=== PATIENT | female | born 1990 | race Caucasian/White ===

== ENCOUNTER 2024-01-19 13:50 | Emergency (ER) | payer BC, SELFPAY ==
[2024-01-19 13:51] VITALS: BP 156/102
[2024-01-19 14:55] VITALS: BMI 27.8
[2024-01-19 14:58] VITALS: BP 130/88
[2024-01-19 14:59] VITALS: BP 130/88
[2024-01-19 15:13] LABS: HCG, Urine Qualitative Screen Negative
--- NOTE | 2024-01-19 15:46 | ED.GENMED ---
History of Present Illness
General
Chief Complaint: Headache
Source: patient
Exam Limitations: none
Time Seen by Provider: 01/19/24 14:39
Travel History
Have you had any contact with someone who has COVID-19?: No
Do you have any symptoms of coronavirus? Fever > 100 degrees, chills, cough, shortness of breath, sore throat, loss of taste or smell, muscle aches, or headache?: No
History of Present Illness
History of Present Illness:
33 yo female w h/o Epilepsy with occasional headaches, presents stating she had a headache for the past 3 days. Its mainly on the right side of her head from her neck up and around to the forehead and around her right eye. She feels nauseous. She
vomited 3 times yesterday but none today. She states pain is 10/10. She took Advil once yesterday with no relief she denies change in vision or photophobia. She states this is different than any headache she has ever had.
She went to her PCP earlier today and saw the nurse practitioner at Dr. Meron Lopez's office and was given Nurtec to see if it helped. This was done 2 hours prior to coming here. She has had absolutely no relief.
She denies fever or chills, no recent trauma. Denies neck pain. Denies numbness or weakness in her extremities.
Medications:
Keppra, Lamictal, Lexapro vits (for the folic acid)
Past History
Past History
ED Past Medical History: Seizures
ED Past Surgical History: Orthopedic
Social History
Tobacco: Non-smoker
Alcohol: Occasional
Personal:
Living: with family
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
Review of Systems
Review of Systems
Allergies reviewed?: Yes
All Other Systems: ROS reviewed and negative except as documented in HPI and ROS
Constitutional: Denies fever
Respiratory: Denies trouble breathing
Cardiac: Denies chest pain
ABD/GI: Reports nausea; Denies abdominal pain
: Reports no symptoms
Musculoskeletal: Reports no symptoms
Skin: Reports no symptoms
Neurological: Reports headache; Denies dizzy, weakness or numbness
Phy Exam
Physical Exam
Physical Exam:
GENERAL: No acute distress. A&Ox3.
CONSTITUTIONAL: Afebrile.
EYES: PERRL, conjunctivae normal
Neck: Supple
ENMT: moist mucus membranes, Pharynx nl
RESPIRATORY: Regular respirations, nonlabored, lungs clear.
CARDIOVASCULAR: Regular rate and rhythm, no murmurs, no rubs.
GI: Soft, nontender, normal BS
MUSCULOSKELETAL: Moves with ease. Well perfused.
SKIN: Warm, dry, pink
PSYCH: Normal mood and affect. Well kept, interactive and appropriate
NEUROLOGIC: Awake, alert and oriented. No focal neurological deficits
Course
Orders/Labs/Results
Orders:
Orders
01/19/24 13:54
CT Head W/o Iv Contrast Urgent
Comment:
Reason For Exam: headache
01/19/24 14:44
Test Result ONCE
01/19/24 14:56
HCG, Urine Qualitative Screen Urgent
Date Specimen was Collected: 01/19/24
Time Specimen was Collected: 14:54
01/19/24 15:56
IV Insert/Care/Rem.- Treatment PRN
0.9% Sodium Chloride 1000 ml [Nss] 1,000 ml IV BOLUS
Diphenhydramine [Benadryl] 50 mg IM NOW STA
01/19/24 15:57
Ketorolac [Toradol] 15 mg IV NOW STA
01/19/24 16:09
Ondansetron Injectable [Zofran] 4 mg .ROUTE .STK-MED ONE
01/19/24 16:22
Ondansetron Injectable [Zofran] 4 mg IV NOW STA
Vital Signs
Initial and Last Documented VS:
Initial Vital Signs
Temp Pulse Resp BP Pulse Ox
99.0 F 67 20 156/102 98
01/19/24 13:51 01/19/24 13:51 01/19/24 13:51 01/19/24 13:51 01/19/24 13:51
Last Documented Vital Signs
Temp Pulse Resp BP Pulse Ox
99.0 F 60 18 114/78 97
01/19/24 13:51 01/19/24 18:24 01/19/24 18:24 01/19/24 18:00 01/19/24 18:00
MDM/Problems Addressed
Differential Diagnosis Includes:
migraine,
MDM/Problems Addressed:
33 yo female w h/o Epilepsy with occasional headaches, presents stating she had a headache for the past 3 days. Its mainly on the right side of her head from her neck up and around to the forehead and around her right eye. She feels nauseous. She
vomited 3 times yesterday but none today. She states pain is 10/10. She took Advil once yesterday with no relief she denies change in vision or photophobia. She states this is different than any headache she has ever had.
She went to her PCP earlier today and saw the nurse practitioner at Dr. Meron Lopez's office and was given Nurtec to see if it helped. This was done 2 hours prior to coming here. She has had absolutely no relief.
She denies fever or chills, no recent trauma. Denies neck pain. Denies numbness or weakness in her extremities.
Afebrile
6:00 PM
After IV fluids, Benadryl, Zofran and Toradol patient states she is feeling much and is comfortable going home. Headache is now 5/10. She states she has has Excedrin and ibuprofen she can take at home
Pt observed ambulating out with normal gait at discharge
*Critical Care Note
Total Time (30-74mins, 75-104mins- exclusive of procedures): Not Applicable
ED Attending Note
-
Portions of this chart may have been created with voice recognition software.� Occasional wrong word or��sound alike� substitutions may have occurred due to the inherent limitations of voice recognition software.
Discharge Plan
Departure
Patient Disposition: Home (Routine Discharge)
Date of Disposition: 01/19/24
Time of Disposition: 18:10
Patient with high blood pressure during this ER visit?: No
Condition: Good
Discharge Problem:
Headache
Instructions: Headache, Adult (DC)
Prescriptions:
No Action
hydrocodone-acetaminophen [Vicodin] 1 EACH tablet
1 ea PO Q4HPRN Qty: 6 0RF
Referrals:
Meron Lopez, DO [Family Provider] - As needed
Activity Restrictions/Additional Instructions:
As we discussed, your head CT shows nothing worrisome.
Use your Excedrin or ibuprofen as needed for headache
Sure to drink plenty of fluids to stay hydrated
Interventions
Interventions:
*Risk Screen - Suicide Last Done: 01/19/24 13:51
*General Assessment Last Done: 01/19/24 13:51
*Neglect/Abuse Screening Last Done: 01/19/24 13:51
ED- Fall Risk Assessment Last Done: 01/19/24 14:59
*ED COVID-19 Vaccine History Last Done: 01/19/24 14:55
*Nursing Disposition Last Done: 01/19/24 18:25
ED- Neurological Assessment Last Done: 01/19/24 14:58
Discharge Date and Time
Discharge Date/Time: 01/19/24 18:25
Print Language: FRISIAN
[2024-01-19 16:00] VITALS: BP 136/85
[2024-01-19] MEDS: TORADOL 15 MG IV (16:12)
[2024-01-19] MEDS: NSS 1000 IV (16:13)
[2024-01-19] MEDS: BENADRYL 50 MG IM (16:13)
[2024-01-19] MEDS: ZOFRAN 4 MG IV (16:36)
[2024-01-19 17:00] VITALS: BP 111/81
[2024-01-19 18:00] VITALS: BP 114/78
== END 2024-01-19 18:25 | disposition home or self-care (01) ==
LOC: EMR 13:50
PROVIDERS: Registered Nurse; EMERGENCY PHYSICIAN Emergency Medicine; FAMILY PHYSICIAN Family Medicine
DX: R51.9 Headache, unspecified (principal); R11.2 Nausea with vomiting, unspecified; R56.9 Unspecified convulsions; Z91.018 Allergy to other foods
CPT/HCPCS: 99284; 96374; 96375; 96361; 96372; 70450; 81025

== ENCOUNTER 2024-01-21 05:20 | Emergency (ER) | payer BC, SELFPAY ==
[2024-01-21 05:21] VITALS: BP 152/95
[2024-01-21] MEDS: COMPAZINE 10 MG IV (06:13)
--- NOTE | 2024-01-21 06:13 | ED.GENMED ---
History of Present Illness
General
Chief Complaint: Headache
Source: patient and spouse
Time Seen by Provider: 01/21/24 05:32
Travel History
Have you had any contact with someone who has COVID-19?: No
Do you have any symptoms of coronavirus? Fever > 100 degrees, chills, cough, shortness of breath, sore throat, loss of taste or smell, muscle aches, or headache?: No
History of Present Illness
History of Present Illness:
33-year-old female presents to the emergency room complaining of a headache. Patient has a history of epilepsy but has not typically had headaches. Headache began 5 days ago. Patient was seen here 2 days ago and had a workup which included a
negative CAT scan. Patient was given Nurtec by her primary care doctor which did not help. She denies any focal weakness numbness or tingling. No vomiting today.
Past History
Past History
ED Past Medical History: Seizures
ED Past Surgical History: Orthopedic
Social History
Tobacco: Non-smoker
Alcohol: Occasional
Personal:
Living: with family
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
Phy Exam
Physical Exam
Physical Exam:
General: Awake, Alert, Oriented X3. No acute distress.
Vitals: Moderate hypertension
Head: Atraumatic
Eyes: Pupils equal, EOMI
Throat: Airway intact, no exudates
Neck: Trachea midline
Lungs: Clear and equal b/l
Heart: Regular rate, no murmurs
Abd: Soft, Nontender, No pulsatile mass
Neuro: Cranial nerves intact, muscle strength equal bilaterally, cerebellar exam normal
Skin: Warm, dry, no rash
Extremities: pulses equal b/l, no edema
Course
Orders/Labs/Results
Orders:
Orders
01/21/24 06:08
Diphenhydramine [Benadryl] 25 mg IV NOW STA
Prochlorperazine [Compazine] 10 mg IV NOW STA
01/21/24 06:09
0.9% Sodium Chloride 500 ml [Nss] 500 ml IV BOLUS
01/21/24 07:55
CT Head & Neck Angio W/wo IV Urgent
Comment:
Reason For Exam: severe headache, no hx of migraines
01/21/24 07:56
Test Result ONCE
01/21/24 07:58
Comprehensive Metabolic Panel Urgent
HCG, Serum Qualitative Screen Urgent
01/21/24 08:16
Acetaminophen 1000MG/100Ml [Ofirmev] 1,000 mg in 100 ml IV ONCE
Acetaminophen IV Indication:: ED Narcotic Naive Pt-ONCE
01/21/24 10:35
HYDROmorphone [Dilaudid] 0.25 mg IV NOW STA
Abnormal Lab Results
01/21/24
07:58
Chloride 108 H mmol/L
(98-107)
Carbon Dioxide 21 L mmol/L
(22-30)
01/21/24 07:58
Vital Signs
Initial and Last Documented VS:
Initial Vital Signs
Temp Pulse Resp BP Pulse Ox
98.0 F 74 18 152/95 97
01/21/24 05:21 01/21/24 05:21 01/21/24 05:21 01/21/24 05:21 01/21/24 05:21
Last Documented Vital Signs
Temp Pulse Resp BP Pulse Ox
98.0 F 68 18 118/89 94
01/21/24 05:21 01/21/24 10:33 01/21/24 10:33 01/21/24 10:33 01/21/24 11:00
MDM/Problems Addressed
Differential Diagnosis Includes:
Migraine headache, tension headache, subarachnoid hemorrhage
MDM/Problems Addressed:
CTA was performed given the patient's headache is refractory to treatment and she does not have a history of migraine headaches. 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 Discussed with neurosurgery here who refers
the patient out for endovascular evaluation. Discussed with Dr. Ford who is on-call for neurosurgery at [place]. Patient was accepted in transfer. Patient will go to the neuro ICU.
*Radiology
Radiology exam reviewed: radiology read reviewed
*Critical Care Note
Total Time (30-74mins, 75-104mins- exclusive of procedures): 35 min
comment:
Critical care statement: A total of 35 minutes of critical care time was provided for this patient. This includes management of unstable vital signs, evaluation of the patient at bedside, reviewing the patient's pertinent medical records, discussion
with consultants, review of old EKGs and review of pertinent medical records. This time with separate from time utilized to perform the aforementioned documented procedures
ED Attending Note
-
Portions of this chart may have been created with voice recognition software.� Occasional wrong word or��sound alike� substitutions may have occurred due to the inherent limitations of voice recognition software.
Discharge Plan
Departure
Patient Disposition: Acute Care Hospital
Date of Disposition: 01/21/24
Time of Disposition: 10:35
Condition: Fair
Discharge Problem:
Dissection, vertebral artery
Prescriptions:
No Action
hydrocodone-acetaminophen [Vicodin] 1 EACH tablet
1 ea PO Q4HPRN Qty: 6 0RF
Referrals:
Meron Lopez DO [Family Provider] -
Hospital Transfer
Other hospital: [facility]
I certify that the patient requires transfer: Yes
Discussed case with accepting physician: Dr. Ford
Reason for transfer: specialties available
Interventions
Interventions:
*Risk Screen - Suicide Last Done: 01/21/24 06:37
*General Assessment Last Done: 01/21/24 06:37
*Neglect/Abuse Screening Last Done: 01/21/24 06:37
ED- Fall Risk Assessment Last Done: 01/21/24 06:37
*Nursing Disposition Last Done: 01/21/24 12:41
ED- Neurological Assessment Last Done: 01/21/24 06:37
Discharge Date and Time
Discharge Date/Time: 01/21/24 12:42
Print Language: SAUDI ARABIAN
[2024-01-21] MEDS: BENADRYL 25 MG IV (06:14)
[2024-01-21] MEDS: NSS 500 IV (06:14)
[2024-01-21 08:18] LABS: HCG, Serum Qualitative Screen Negative
[2024-01-21 08:21] LABS: ALT (SGPT) 11 U/L (0-35); AST (SGOT) 19 U/L (14-36); Alkaline Phosphatase 53 U/L (38-126); Blood Urea Nitrogen 7 mg/dl (7-17); Calcium 8.5 mg/dl (8.4-10.2); Carbon Dioxide 21 mmol/L (22-30); Chloride 108 mmol/L (98-107); Glucose 81 mg/dl (70-99); Potassium 4.3 mmol/L (3.5-5.1); Sodium 139 mmol/L (135-145); Total Bilirubin 0.2 mg/dl (0.2-1.3); Total Protein 6.6 g/dl (6.3-8.2); eGFR > 60.00
[2024-01-21] MEDS: OFIRMEV 100 IV (08:22)
[2024-01-21 08:30] VITALS: BP 147/98
[2024-01-21 10:33] VITALS: BP 118/89
[2024-01-21] MEDS: DILAUDID 0.25 MG IV (10:52)
== END 2024-01-21 12:42 | disposition short-term general hospital (02) ==
LOC: EMR 05:20
PROVIDERS: EMERGENCY PHYSICIAN Emergency Medicine; FAMILY PHYSICIAN Family Medicine
DX: R51.9 Headache, unspecified (principal)
CPT/HCPCS: 99285; 96374; 96375; 96361; 70496; 70498; 80053; 84703; Q9967

== ENCOUNTER 2024-09-13 16:01 | Emergency (ER) | payer BC, SELFPAY ==
[2024-09-13 16:21] VITALS: BP 132/90
[2024-09-13 16:46] LABS: % Eosinophils 1.8 % (0-6); % Immature Granulocytes 0.2 % (0-0.5); % Lymphocytes 33.9 % (20.5-51.1); % Monocytes 11.5 % (1.7-9.3); % Neutrophils 51.6 % (42.2-75.2); Absolute Basophils 0.1 10^3/uL (0-0.2); Absolute Eosinophils 0.1 10^3/uL (0-0.7); Absolute Lymphocytes 2.1 10^3/uL (1.2-3.4); Absolute Monocytes 0.7 10^3/uL (0.1-0.6); Absolute Neutrophils 3.2 10^3/uL (1.4-6.5); Hematocrit 41.5 % (37.0-47.0); Hemoglobin 13.4 g/dL (12.0-16.0); Mean Corp Hgb Conc. 32.3 g/dL (33.0-37.0); Mean Corpuscular Hgb 30.3 pg (27.0-31.0); Mean Corpuscular Volume 93.9 fL (81.0-99.0); Mean Platelet Volume 9.1 fL (7.4-10.4); Nucleated Red Blood Cells % 0 %; Platelet Count 392 10^3/uL (130-400); Red Blood Cell Count 4.42 10^6/uL (4.20-5.40); Red Cell Dist. Width 13.3 % (11.5-14.5); White Blood Cell Count 6.2 10^3/uL (4.8-10.8)
[2024-09-13 16:49] LABS: Urine Albumin Negative (Neg - Trace); Urine Bilirubin Negative (Negative); Urine Character Clear (Clear); Urine Color Yellow; Urine Glucose Negative (Negative); Urine Ketone Negative (Negative); Urine Leukocyte Negative (Negative); Urine Nitrite Negative (Negative); Urine Occult Blood 3+ (Negative); Urine Specific Gravity 1.025 (<1.030); Urine Urobilinogen Negative (Neg - 1+)
[2024-09-13 16:58] LABS: HCG, Serum Qualitative Screen Negative
[2024-09-13 17:04] LABS: ALT (SGPT) 13 U/L (0-35); AST (SGOT) 21 U/L (14-36); Alkaline Phosphatase 69 U/L (38-126); Blood Urea Nitrogen 6 mg/dl (7-17); Calcium 9.2 mg/dl (8.4-10.2); Carbon Dioxide 23 mmol/L (22-30); Chloride 103 mmol/L (98-107); Glucose 101 mg/dl (70-99); Lipase 96 U/L (23-300); Potassium 4.3 mmol/L (3.5-5.1); Sodium 137 mmol/L (135-145); Total Bilirubin 1.1 mg/dl (0.2-1.3); Total Protein 7.9 g/dl (6.3-8.2); eGFR > 60.00
[2024-09-13 17:14] LABS: Urine Mucus Many
[2024-09-13 17:15] LABS: Urine Bacteria Moderate (Negative)
[2024-09-13 23:08] VITALS: BP 132/89; BMI 23.6
--- NOTE | 2024-09-13 23:29 | ED.GENMED ---
History of Present Illness
General
Chief Complaint: Abdominal Symptoms
Source: patient
Exam Limitations: none
Time Seen by Provider: 09/13/24 23:18
History of Present Illness
History of Present Illness:
See MDM
Past History
Past History
ED Past Medical History: Seizures
ED Past Surgical History: Orthopedic
Social History
Tobacco: Non-smoker
Alcohol: Occasional
Personal:
Living: with family
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
Phy Exam
Physical Exam
Physical Exam:
See MDM
Course
Orders/Labs/Results
Orders:
Orders
09/13/24 16:25
Test Result ONCE
09/13/24 16:33
Complete Blood Count/With Diff Urgent
Comprehensive Metabolic Panel Urgent
HCG, Serum Qualitative Screen Urgent
Lipase Urgent
Urinalysis Reflex To Culture Urgent
Date Specimen was Collected: 09/13/24
Time Specimen was Collected: 16:25
Urine Microscopic Reflex Cult Urgent
Urine Culture Urgent
MADINA Source: U
Specimen Description:
Date Specimen was Collected: 09/13/24
Time Specimen was Collected: 16:25
09/13/24 23:28
Ketorolac [Toradol] 30 mg IM NOW STA
Lamotrigine [Lamictal] 150 mg PO NOW STA
US Abdomen Complete/Upper Urgent
Comment:
Reason For Exam: RUQ pain
09/13/24 23:30
Ondansetron Orally Disint [Zofran Odt (Orally Disintegrating)] 4 mg PO NOW STA
09/13/24 23:38
Levetiracetam Extended Release [Keppra Xr (Extended Release)] 3,000 mg PO NOW STA
09/14/24 01:08
CT Abd/pelvis W Iv Cont Urgent
Comment:
Reason For Exam: R upper abd pain
Abnormal Lab Results
09/13/24
16:33
MCHC 32.3 L g/dL
(33.0-37.0)
Absolute Monos (auto) 0.7 H 10^3/uL
(0.1-0.6)
Monocytes % 11.5 H %
(1.7-9.3)
BUN 6 L mg/dl
(7-17)
Glucose 101 H mg/dl
(70-99)
Ur Occult Blood Reflex 3+ A
(Negative)
Urine RBC 7-10 A /HPF
(0-2)
Urine Bacteria (Reflex) Moderate A
(Negative)
09/13/24 16:33
09/13/24 16:33
Vital Signs
Initial and Last Documented VS:
Initial Vital Signs
Temp Pulse Resp BP Pulse Ox
98.4 F 62 16 132/90 100
09/13/24 16:21 09/13/24 16:21 09/13/24 16:21 09/13/24 16:21 09/13/24 16:21
Last Documented Vital Signs
Temp Pulse Resp BP Pulse Ox
98.2 F 66 18 134/66 99
09/13/24 23:08 09/14/24 02:40 09/14/24 02:40 09/14/24 02:40 09/14/24 02:40
MDM/Problems Addressed
Differential Diagnosis Includes:
HPI and MDM Narrative:
33-year-old female presenting for evaluation of right upper quadrant pain. This occurred last night. There is mild nausea and there is some relationship to food intake. She went to urgent care earlier in the day and was referred to the emergency
department for further workup. Given her distribution of pain, will obtain ultrasound to rule out gallbladder pathology. Urinalysis does show mild hematuria but patient is on her menstrual cycle
Physical exam
General: Well appearing and non-toxic
HEENT: protecting airway
Neck: appears supple
CV: No evidence of cyanosis
Resp: No accessory muscle use
Abd: Non-distended. Mild right upper quadrant tenderness. No rebound
Extremities: No deformities
Neuro: alert
Psych: Normal affect
Skin: Intact
Problems Addressed including Acute and Chronic Conditions affecting care:
1. Right upper quadrant pain
Acuity: acute
Prognosis: stable
Details: Given history and relationship to food intake, will obtain ultrasound to rule out gallbladder pathology
Updates
1 AM ultrasound negative. Given persistence of pain, will obtain CT
CT negative for acute pathology. We discussed likely constipation. Upon further questioning, she is on iron supplement. Discussed taking stool softener
Differential Diagnosis (but not limited to): Gallstone, kidney stone
Testing considered: CT abdomen/pelvis
Drug therapy (if applicable): OTC meds, please see d/c instruction regarding Rx drugs
Amount and/or Complexity of Data Reviewed
Clinical info obtained from: Patient
External data reviewed: N/A
Labs I independently reviewed (but not limited to): Hematuria, LFTs within normal limits
Radiology: The CT scan was personally and independently reviewed. In addition, official CT report reviewed.
Pulse Ox: not hypoxic
EKG independently reviewed: N/A
Crystallizer Operator: N/A
Critical Care: N/A
Risk of Complication:
Social Determinants of health: Good social support
Discussed with other providers: N/A
Escalation of Care includes Admit/Obs: After being observed in the Emergency Department, pt stable for discharge.
Occasional wrong word or 'sound a like' substitutions may have occurred due to the inherent limitations of voice recognition software. Read the chart carefully and recognize, using context, where substitutions have occurred.
*Critical Care Note
Total Time (30-74mins, 75-104mins- exclusive of procedures): Not Applicable
ED Attending Note
-
Portions of this chart may have been created with voice recognition software.� Occasional wrong word or��sound alike� substitutions may have occurred due to the inherent limitations of voice recognition software.
Discharge Plan
Departure
Patient Disposition: Home (Routine Discharge)
Date of Disposition: 09/14/24
Time of Disposition: 02:48
Patient with high blood pressure during this ER visit?: No
Discharge Problem:
Abdominal pain
Instructions: Abdominal Pain
Prescriptions:
No Action
lamotrigine [Lamictal] 150 mg Tablet
150 mg PO BID
27 mg iron- 0.8 mg Tablet
1 tab PO DAILY
aspirin 81 mg Tablet
81 mg PO DAILY
levetiracetam 750 mg Tablet
3,000 mg PO QHS
escitalopram oxalate [Lexapro] 10 mg Tablet
10 mg PO DAILY
Referrals:
UNKNOWN - PT DOES,NOT KNOW [Family Provider] -
Activity Restrictions/Additional Instructions:
Please return for any worsening symptoms.
You may return at any time if you have further concerns.
You may benefit from a daily dose of MiraLAX for the next few days. Moving forward, I suggest taking a daily stool softener.
Please follow up with your doctor at the first available appointment, preferably this week.
Thank you for choosing [facility].
Interventions
Interventions:
*Risk Screen - Suicide Last Done: 09/13/24 16:21
*General Assessment Last Done: 09/13/24 16:21
*Neglect/Abuse Screening Last Done: 09/13/24 16:21
ED- Fall Risk Assessment Last Done: 09/13/24 23:08
*ED COVID-19 Vaccine History Last Done: 09/13/24 16:21
[id number] Assessment Last Done: 09/13/24 23:08
Discharge Date and Time
Print Language: LEBANESE
[2024-09-13] MEDS: LAMICTAL 150 MG PO (23:41)
[2024-09-13] MEDS: TORADOL 30 MG IM (23:41)
[2024-09-13] MEDS: ZOFRAN ODT (ORALLY DISINTEGRATING) 4 MG PO (23:41)
[2024-09-14] MEDS: KEPPRA XR (EXTENDED RELEASE) 3000 MG PO (00:01)
[2024-09-14 02:40] VITALS: BP 134/66
== END 2024-09-14 03:01 | disposition home or self-care (01) ==
LOC: EMR 16:01
PROVIDERS: Emergency Medicine; EMERGENCY PHYSICIAN Student in an Organized Health Care Education/Training Program
DX: R10.11 Right upper quadrant pain (principal)
CPT/HCPCS: 99284; 74177; 76700; 80053; 81003; 81015; 83690; 84703; 85025; 87086; Q9967